=== PATIENT | female | born 1985 ===

== ENCOUNTER 2020-04-05 11:42 | Outpatient (CLI) | payer MEDICAID ==
--- NOTE | 2020-04-05 15:16 | XRay Report ---
RIGHT HUMERUS 2 VIEWS INDICATION / CLINICAL INFORMATION: LOCALIZED SWELLING, MASS AND LUMP, UNSPECIFIED COMPARISON: None available. FINDINGS: BONES and JOINT(S): No acute fracture or subluxation. No significant arthritis. SOFT TISSUES: No significant abnormality. ADDITIONAL FINDINGS: None. IMPRESSION: No mass is clearly identified radiographically along the right arm. Signer Name: Jayme Baer MD Signed: 04/05/2020 3:11 PM Workstation Name: [id number]
== END 2020-04-05 11:43 | disposition home or self-care (01) ==
LOC: XRAY 11:42
PROVIDERS: ATTEND Internal Medicine
DX: R22.9 Localized swelling, mass and lump, unspecified (principal)